=== PATIENT | female | born 1995 | race Caucasian/White ===

== ENCOUNTER 2016-10-05 19:44 | Emergency (ER) | payer SELFPAY ==
[~2016-10-05] VITALS: Ht 160 cm; Wt 49.4 kg
[2016-10-05 19:50] VITALS: BP 114/82
[2016-10-05] MEDS ORDERED: SILVADENE20 GM TP (19:54)
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
[2016-10-05] MEDS ORDERED: NORCO 5-325 TA1 EACH ORAL (19:58)
[2016-10-05] MEDS ORDERED: Morphine Sulfate 4mg/ml Inj IVP ONE (20:30)
[2016-10-05 20:41] VITALS: BP 114/82
== END 2016-10-05 20:41 | disposition home or self-care (01) ==
LOC: EDBD 19:44 → EMR 20:00
DX: T21.21XA Burn of second degree of chest wall, initial encounter (principal); T24.211A Burn of second degree of right thigh, initial encounter; T20.19XA Burn of first degree of multiple sites of head, face, and neck, initial encounter; X12.XXXA Contact with other hot fluids, initial encounter; Y93.9 Activity, unspecified; Y92.9 Unspecified place or not applicable
CPT/HCPCS: 96374; 96375; 99284; J2270; J2405